=== PATIENT | female | born 1970 | race Caucasian/White ===

== ENCOUNTER 2016-12-29 08:11 | Emergency (ER) | payer OTHER ==
--- NOTE | 2016-12-29 08:51 | PROVIDER DOCUMENTATION ---
HPI-General Adult - General Source: patient - History of Present Illness -Gen Adult Nature of Presenting Problems: pt is a 46 y/o F that presents with one week of cough congest that got worse yesterday. denies fever/chills, has sore throat and body aches. family has similar symptoms Location of Pain/Injury: reports: generalized Pain Radiation: reports: no radiation Quality of Pain: reports: aching Severity: reports: mild Onset/Duration: reports: gradual, 1 week ago Timing: reports: still present, constant Context/Activities at Onset: reports: none Modifying Factors: improves with: nothing Associated Symptoms: reports: cough, EENT symptoms, muscle aches. denies: fever /chills, genitourinary problems, nausea, vomiting Similar Symptoms Previously?: Yes Recently seen or treated by another doctor?: No <Kyle Luevano - Last Filed: 12/29/16 08:57> <German Sawyer - Last Filed: 12/29/16 10:19> - General Chief Complaint: Flu Symptoms Stated Complaint: COLD SX Time Seen by Provider: 12/29/16 08:49 Allergies/Adverse Reactions: Patient Allergies Allergy/AdvReac Type Severity Reaction Status Date / Time Penicillins Allergy HIVES Verified 10/24/16 21:23 Home Medications: Home Medication List Medication Instructions Recorded Confirmed Last Taken Type Alprazolam [Xanax] 1 mg PO BID 07/30/14 10/24/16 10/24/16 07:30 History Hydrocodone/Acetaminophen [[place] 1 each PO Q6H PRN 07/30/14 10/24/16 10/24/16 13 :30 History 10-325 Tablet] Gabapentin E.r. [Gralise] 1 tab PO BID 03/10/16 10/24/16 10/24/16 07:30 History LISINOpril [Prinivil] 2.5 mg PO DAILY 03/21/16 10/24/16 10/24/16 07:30 History Oxycodone HCl 40 mg PO DAILY 03/21/16 10/24/16 10/24/16 10:00 History Nitrofurantoin [place]/Macrocryst 100 mg PO BID #20 capsule 12/11/16 Unknown Rx [Macrobid] Azithromycin [Zithromax Z-Robert] 250 mg PO DIRECTED #1 pkg 12/29/16 Unknown Rx Guaifenesin/Codeine [Robitussin-AC] 10 ml PO Q4H PRN PRN #4 oz 12/29/16 Unknown Rx Review of Systems - Adult - REVIEW OF SYSTEMS - ADULT Constitutional: denies: chills, fever Eyes: reports: no symptoms reported Ears, Nose, Mouth & Throat: reports: sinus problem, throat pain. denies: ear pain Cardiovascular: reports: no symptoms reported Respiratory: reports: cough. denies: shortness of breath, wheezing Gastrointestinal: denies: abdominal pain, diarrhea, nausea, vomiting Genitourinary: reports: no symptoms reported Musculoskeletal: reports: no symptoms reported Integumentary: reports: no symptoms reported Neurological: reports: no symptoms reported Psychiatric: reports: no symptoms reported Endocrine: reports: no symptoms reported Hematologic/Lymphatic: reports: no symptoms reported Allergic/Immunologic: reports: no symptoms reported All Other Systems: Reviewed and Negative <Kyle Luevano - Last Filed: 12/29/16 08:57> Past History - Adult - PAST MEDICAL HISTORY-ADULT Review of Records: reports: Old Records Reviewed, Nursing Assessment Review, Medications Reviewed Gastrointestinal: reports: ulcer Musculoskeletal: reports: arthritis, chronic pain, neck/back injury Psychiatric: reports: anxiety Endocrine/Immune: reports: hypoglycemia Other Conditions: reports: denies history - PRIOR SURGERIES/PROCEDURES Surgical/Procedure History: reports: , orthopedic (extremity) (foot, L) - PRIOR HOSPITALIZATIONS Prior Hospitalizations: reports: none - IMMUNIZATION STATUS Childhood Immunizations: See Nurse Assessment Flu Vaccine: See Nurse Assessment - FAMILY HISTORY Family History: reviewed, not pertinent - SOCIAL HISTORY Smoking: cigarettes, less than 1 pack/day Living Situation: family <Kyle Luevano - Last Filed: 12/29/16 08:57> Physical Exam-General - PHYSICAL EXAM-ADULT Initial Vital Signs Reviewed: Yes - CONSTITUTIONAL General Appearance: alert, no apparent distress - EYES Eyes: PERRL/EOMI, pink conjunctivae - HEAD, EARS, NOSE, MOUTH & THROAT HENMT: normocephalic/atraumatic, moist mucous membranes, normal ENT inspection - NECK Neck: full range of motion, normal inspection - RESPIRATORY Respiratory: lungs clear, normal breath sounds, no respiratory distress, no accessory muscle use - CARDIOVASCULAR Cardiovascular: regular rate, rhythm, no edema, no murmur - GASTROINTESTINAL (ABDOMEN) Abdominal Exam: normal bowel sounds, non tender, soft, no organomegaly, no pulsatile mass - MUSCULOSKELETAL Extremity: normal range of motion, normal inspection, no pedal edema - SKIN Integumentary: normal color, warm/dry - NEUROLOGIC Neurologic: grossly normal, no motor/sensory deficits - PSYCHIATRIC Psych/Mental Status: normal mood/affect, normal thought content, normal thought process, oriented x 3 <Kyle Luevano - Last Filed: 12/29/16 08:57> Progress - PLAN OF CARE/RESULTS Progress/Plan/Lab Results: Vital Signs - 24 hr 12/29/16 08:25 Temperature 97.8 F Pulse Rate 70 Respiratory 20 Rate Blood Pressure 127/81 O2 Sat by Pulse 99 Oximetry Orders Category Date Time Status CHEST-2 VIEWS [RAD] Stat Exams 12/29/16 09:04 Taken CBC WITH DIFF [HEME] Stat Lab 12/29/16 09:[address] Stat Lab 12/29/16 09:[address] Stat Lab 12/29/16 09:35 Completed Laboratory Tests 12/29/16 12/29/16 12/29/16 09:12 09:35 09:35 WBC 7.12 RBC 4.40 Hgb 13.0 Hct 37.9 MCV 86.1 MCH 29.5 MCHC 34.3 RDW Std Deviation 12.0 Plt Count 232 MPV 9.8 Immature Gran % (Auto) 0.1 Neut % (Auto) 65.2 Lymph % (Auto) 27.2 [place] % (Auto) 5.1 Eos % (Auto) 1.7 Baso % (Auto) 0.7 Immature Gran # (Auto) 0.01 Neut # (Auto) 4.64 Lymph # (Auto) 1.94 [place] # (Auto) 0.36 Eos # (Auto) 0.12 Baso # (Auto) 0.05 Influenza A (Rapid) NEGATIVE Influenza B (Rapid) NEGATIVE Group A Strep Rapid NEGATIVE - XRAY 1 XRAY Study: Chest Impression: Normal XRAY Interpretation: nad <German Sawyer - Last Filed: 12/29/16 10:19> Departure <Kyle Luevano - Last Filed: 12/29/16 08:57> - Departure Time of Disposition Order: 10:18 Certified Medical Emergency: Emergent <German Sawyer - Last Filed: 12/29/16 10:19> - Departure DIAGNOSIS: Upper respiratory infection Qualifiers: URI type: unspecified viral URI Qualified Code(s): J06.9 - Acute upper respiratory infection, unspecified; B97.89 - Other viral agents as the cause of diseases classified elsewhere Disposition: HOME 01 Condition: Stable Additional Instructions: ED Follow Up Instructions: You have been treated by a care provider in the Emergency Department. These instructions are being provided to you so you can have an understanding of how to care for yourself upon discharge. Upon discharge from the Emergency Department, you are responsible for making arrangements for follow-up care by a physician of your choice. Take all prescribed medications as directed. Return to the Emergency Department immediately for any new or worsening symptoms. You may call the Physician Referral phone number at [phone] to obtain a list of Physicians who are taking new patients. Prescriptions: Guaifenesin/Codeine [Robitussin-AC] 10 ml PO Q4H PRN PRN #4 oz PRN Reason: Cough Azithromycin [Zithromax Z-Robert] 250 mg PO DIRECTED #1 pkg Referrals: Juanito Bradley MD [Primary Care Provider] - Call for Appoint. 1-2days Instructions: Upper Respiratory Infection, Adult, [id number] Attestation - Scribe Verification/Attestation Scribe:: Kyle Luevano Acting as Scribe for:: German Sawyer Scribe documention review:: This chart was documented by a scribe and accurately reflects the service the provider performed and the decisions made by the provider. <Kyle Luevano - Last Filed: 12/29/16 08:57> Physician Attestation - Physician Attestation I, the provider, attest to the following statement:: German Sawyer Physician documentation Attestation:: This documentation recorded by the scribe accurately reflects the service I personally performed and the decisions made by me. <Kyle Luevano - Last Filed: 12/29/16 08:57>
[2016-12-29 09:15] LABS: BASO% 0.7 % (0.0-0.8); EOS# 0.12 X1000 (0.0-0.7); EOS% 1.7 % (0.0-10.0); HEMATOCRIT 37.9 % (37.0-47.0); IMM GRAN# 0.01 X1000 (0.0-0.04); IMM GRAN% 0.1 % (0.0-0.5); LYMPH# 1.94 X1000 (1.2-3.4); LYMPH% 27.2 % (20.5-51.1); MANUAL DIFF NEEDED? NO; MCH 29.5 PG (27-31); MCHC 34.3 g/dL (33-37); MCV 86.1 FL (81-99); MONO# 0.36 X1000 (0.11-0.59); MONO% 5.1 % (1.7-9.3); MPV 9.8 FL (7.4-10.4); NEUT% 65.2 % (42.2-75.2); PLT 232 X1000 (130-400)
--- NOTE | 2016-12-29 10:28 | Diag Imaging Result Document ---
PROCEDURE NAME: CHEST-2 VIEWS - 12/29/2016 CHEST, 2 VIEWS: 12/26/2016. FINDINGS: Heart size is normal. The lungs appear clear. There is no pleural effusion or pneumothorax identified. There are mild mid thoracic dextroscoliosis and spondylosis noted. IMPRESSION: No evidence of acute disease.
[2016-12-29 12:56] VITALS: BP 130/074
== END 2016-12-29 10:25 | disposition home or self-care (01) ==
LOC: P.ED 08:11
DX: J06.9 Acute upper respiratory infection, unspecified (principal); R05 Cough; J02.9 Acute pharyngitis, unspecified; M79.1 Myalgia; M19.90 Unspecified osteoarthritis, unspecified site; G89.29 Other chronic pain; F41.9 Anxiety disorder, unspecified; F17.210 Nicotine dependence, cigarettes, uncomplicated; Z79.899 Other long term (current) drug therapy
CPT/HCPCS: 36415; 71020; 85025; 87081; 87430; 87804; 99283